=== PATIENT | female | born 1925 | race Caucasian/White ===

== ENCOUNTER → 2016-07-23 | Outpatient (CLI) | payer MEDICARE, OTHER ==
[~2016-07-23] MED LIST: ASPIRIN81 MG PO; CENTRUM SILVER1 EAC1 PO; CRESTOR20 MG PO; GLUCOPHAGE XR500 MG PO; HUMALOG MI100 UNIT/1 SUBCUT; LANTUS SOL100 UNIT/1 SUBCUT; LOPRESSOR25 MG PO; MIRALAX17 GM PO; NITROLINGUAL12 GM SL; PRAVACHOL40 MG PO; RANEXA1000 MG PO; VITAMIN D31000 UNI1 PO
== END | disposition short-term general hospital (02) ==
LOC: CLCARD 09:25
DX: I95.1 Orthostatic hypotension (principal); I25.119 Atherosclerotic heart disease of native coronary artery with unspecified angina pectoris; E78.5 Hyperlipidemia, unspecified; I10 Essential (primary) hypertension; E11.9 Type 2 diabetes mellitus without complications; E66.9 Obesity, unspecified; Z79.4 Long term (current) use of insulin; Z79.899 Other long term (current) drug therapy